=== PATIENT | male | born 1940 | race African-American/Black ===

== ENCOUNTER 2019-04-26 08:35 | Emergency (ER) | payer MEDICARE, MEDICAID ==
[~2019-04-26] VITALS: Ht 182.9 cm; Wt 83.0 kg
[2019-04-26 10:42] VITALS: BP 168/92
== END 2019-04-26 10:43 | disposition home or self-care (01) ==
LOC: ER 08:35
DX: R20.0 Anesthesia of skin (principal); R51 Headache; E78.00 Pure hypercholesterolemia, unspecified; I10 Essential (primary) hypertension
CPT/HCPCS: 99283

== ENCOUNTER 2023-03-30 16:40 | Emergency (ER) | payer MEDICARE, MEDICAID ==
[~2023-03-30] VITALS: Ht 185.4 cm; Wt 91.0 kg
[2023-03-30 16:58] VITALS: O2SAT 100
[2023-03-30 17:00] VITALS: TEMP 99
[2023-03-30] MEDS ORDERED: ACETAMINOPHEN 325MG TABLET PO ONE (17:00)
[2023-03-30 17:15] VITALS: BP 148/82; PULSE 95; RESP 16
[2023-03-30] MEDS ORDERED: KETOROLAC 30MG/ML VIAL IM ONE (17:15)
[2023-03-30] MEDS ORDERED: ONDANSETRON 4MG ODT PO ONE (17:45)
[2023-03-30 18:17] LABS: CHLORIDE 109 mEq/L (98-107)
[2023-03-30 18:27] LABS: CREATINE KINASE 143 IU/L (39-308)
[2023-03-30] MEDS ORDERED: IBUP-2029 MT ×2 (18:36)
[2023-03-30] MEDS ORDERED: CYCL10TA21 MT ×2 (18:36)
[2023-03-31] MEDS ORDERED: CYCL10TA21 MT (18:00)
[2023-03-31] MEDS ORDERED: IBUP-2029 MT (18:00)
== END 2023-03-30 19:08 | disposition home or self-care (01) ==
LOC: ER 16:40
DX: R25.2 Cramp and spasm (principal); N17.9 Acute kidney failure, unspecified; E78.00 Pure hypercholesterolemia, unspecified; I10 Essential (primary) hypertension
CPT/HCPCS: 99285; 93970; 80053; 82550; 36415; 96372; Q0162; J1885